=== PATIENT | male | born 1975 | race Caucasian/White ===

== ENCOUNTER → 2021-01-14 08:16 | Outpatient (BNVA) | payer OTHER, SELFPAY | PROVIDERS: PCP Internal Medicine; Visit Provider Urology | DX: N47.1 Phimosis (principal) | CPT/HCPCS: 99202 ==

== ENCOUNTER 2021-02-07 06:48 | Day surgery (SDC) | payer OTHER, SELFPAY ==
[2021-02-02 08:23] VITALS: BMI 43.4
[2021-02-07] VITALS (8 sets, daily range): BP systolic 106–169; BP diastolic 62–92; PULSE 63–81; RESP 16–18; TEMP 36.1–36.8; O2SAT 94–97
[2021-02-07 06:58] LABS: Glucose, Whole Blood 121 mg/dL (60-115)
[2021-02-07] MEDS: Lactated Ringers 1,000 ML 20 ML IVCONT (07:27)
--- NOTE | 2021-02-07 07:31 | MHC.SHP ---
Pre-Procedural Eval Section A The patient is an INPATIENT: No Changes since office visit: No Cold of Flu in the past 2 weeks, No New Medical Problems, No Changes in Medication and No Patient answered all questions The History & Physical has been completed within 30 days and I have reviewed it.: Yes Section B Chief Complaint: Phimosis Allergies: Allergies Allergy/AdvReac Type Severity Reaction Status Date / Time No Known Allergies Allergy Verified 01/14/21 08:32 Plan Diagnosis/Plan: Unchanged (circumcision with attachment) I have reviewed the history and physical and performed a pertinent physical examination on my patient. No changes have occurred unless specified.
--- NOTE | 2021-02-07 08:40 | HO.ANESPROP2 ---
[facility] Active Problems Active Problems: All Active Problems (Updated 02/02/21 @ 08:27 by Liana Alvarado) Phimosis (Acute) Past Medical History Medical History Arthritis Asthma Diabetes High blood pressure determined by examination Sleep apnea Surgical History Surgical History History of hernia repair Hx of appendectomy Social History Social History Are you a primary career development coordinator/teacher to a significant other at home: No Do you presently have visiting nurse or other home services: No Smoking Status: Never smoker Use of substances other than those prescribed or required for medical reasons: No Have you been hit, kicked, punched, or otherwise hurt by someone within the past year? If so, by whom?: No Advance Directives Information Provided: No Recently lost weight without trying: No Meds Allergies Allergy/AdvReac Type Severity Reaction Status Date / Time No Known Allergies Allergy Verified 01/14/21 08:32 Active Medications: Current Medications Generic Name Dose Route Start Last Admin Trade Name Freq PRN Reason Stop Dose Admin Lactated Ringer's 1,000 mls @ 20 mls/hr 02/07/21 07:30 02/07/21 07:27 Lr IVCONT 20 mls/hr .Q24H NATALIA Administration Home Medications Medication Instructions Recorded Confirmed Last Taken Type albuterol sulfate 90 mcg/actuation 2 puff PO Q6H PRN 01/14/21 02/02/21 Unknown History aerosol inhaler budesonide-formoterol HFA 160 2 puff INHALATION DAILY 01/14/21 02/02/21 02/07/21 History mcg-4.5 mcg/actuation aerosol inhaler lisinopril 10 mg tablet 10 mg PO DAILY 01/14/21 02/02/21 Unknown History metformin 500 mg tablet,extended 500 mg PO BEDTIME 01/14/21 02/02/21 Unknown History release 24 hr ibuprofen 400 mg PO Q6H PRN 02/02/21 02/02/21 02/01/21 History Exam Exam Date and Time: February 07, 2021 0840 Height,Weight and Vital Signs: Height 6 ft Weight 145.15 kg Last Vital Signs Temp 97 F 02/07/21 06:58 Pulse 70 02/07/21 06:58 Resp 18 02/07/21 06:58 BP 169/92 H 02/07/21 06:58 Pulse Ox 95 02/07/21 06:58 Pertinent Lab Results Pertinent Lab Results: Laboratory Tests 02/07/21 06:55 POC Glucose 121 H Airway Mallampati Class: I TM Dist: >3cm Neck ROM: Full Assessment and Plan Assessment Anesthesia Assessment: Anesthesia Plan Discussed Final Anesthetic Review NPO: Yes ASA Class: III Final Preanesthetic Review: No Changes in Pt Med Stat, Meds/Allgs Chart Reviewed, Consent Obtained/Reviewed and Anes Risks/Benef Reviewed Patient Risk: Intermediate Procedure Risk: Low Assessment/Block/Sedation in SS: Assess/Block/Sedation-SS Anesthetic Plan Anesthetic Plan: GA Disposition: Standard PACU
--- NOTE | 2021-02-07 10:25 | P.OP_ITS ---
Operative Note Operative Note Date of Service: 02/07/21 Narrative: PreOperative Diagnosis: Balanitis and phimosis in obese male Post Operative Diagnosis: Balanitis and phimosis in morbidly obese male Procedure: Circumcision with penile plasty Surgeon: Dr Flex Huerta Anesthesia: General Indications for procedure: Recurring balanitis in inability to withdrawal foreskin of penile glans. Risks and benefits including bleeding, scarring, need for revision surgery been discussed. Due to body habitus has had in penis so will perform penile plasty at time of circumcision Procedure: After informed consent was verified the patient was brought to the operating room and placed in a supine position. Anesthesia was administered per protocol. The patient was prepped and draped sterile fashion. Safety pause time-out was performed. Antibiotics have been given. The penis was examined and proximal incision marked that lay just proximal to the resting position of the penile sulcus. This was followed around the circumference of the penis. A penile ring block was performed using 1% lidocaine with no epinephrine. Approximately 8 cc. The foreskin was difficult withdrawal. Three separate incisions were required 1 at the 12:00 o'clock, 03:00 o'clock and 09:00 o'clock positions in order to fully retract the foreskin and clean with Betadine. The proximal incision was developed with sharp blade running circumferentially around the penis. The skin was to give a 1 cm separation between the foreskin in the remaining penile shaft skin. The foreskin was withdrawn and the penile glans exposed. A a distal incision was made approximately 5 mm proximal to the penile sulcus. At the area of the frenulum care was taken to empty the penile frenulum intact. Using clamps the dorsal skin was elevated. Using Metzenbaum scissors the avascular plane was entered and proximal and distal incision were joined. The bridging skin was elevated and clamped. It was then divided using Bovie. The sleeve of tissue was then removed circumferentially around the penis using cautery in order to minimize bleeding. The avascular plane underlying Evans's fascia and below the dartos fascia was developed in the dorsal position down along the shaft of the penis. This created space is that would allow the penile plasty sutures to be applied. A Z- plasty small incision approximately 1/2 inches was made at the penoscrotal junction to allow mobilization if necessary. Using 3-0 Vicryl sutures these were placed into the corporal bodies to take fascia and then through the dartos layer of the skin and the perceived junction between the base of the penis and. Pubic space. These were placed at 02:00 o'clock and 10:00 o'clock positions. They allowed the skin to be brought down more onto the proximal portion of the penile shaft. After these had been tied down we redirected cells to reapproximation of the skin. The shaft was then examined in any bleeding areas were controlled. More local anesthetic was injected into the plane beneath avascular plane to help with postprocedure pain management. The skin edges after they were appropriately examined low reapposed. A 3-0 chromic suture was placed at 12:00 o'clock and 06:00 o'clock positions. Interrupted 3-0 was then placed the 09:00 o'clock and 3 o'clock position. Each quadrant was then filled with 3 sutures using 4-0 chromic. Small free Incision was closed with 4-0 chromic sutures. The Z-plasty on the scrotum was closed using interrupted 4-0 chromic sutures as well. At the completion of the procedure there was adequate hemostasis. The incision was washed and dried. Antibiotic cream was applied to the incision. A Clifton wrap was applied followed by a Coban dressing. Xeroform gauze had been used to cover antibiotic ointment. He tolerated the procedure well and was extubated in the room and transferred in stable condition to the recovery area. Pathology: Foreskin Drains: none
--- NOTE | 2021-02-07 11:50 | PM.OP ---
Brief Operative Note Date of Service: 02/07/21 Pre-op diagnosis: Phimosis, hidden penis Post-op diagnosis: same Procedure: Circumcision with penile plasty Surgeon: Flex Huerta MD Anesthesia: GLMA Estimated blood loss (mL): 0 Pathology: other Condition: stable Disposition: same day
== END 2021-02-07 12:14 ==
LOC: HO.SSS 06:48
PROVIDERS: PCP Internal Medicine; Visit Provider Urology
PROC: (CPT 54161; principal; 2021-02-07 08:30)
DX: N47.1 Phimosis (principal); N48.1 Balanitis; N48.83 Acquired buried penis; E66.01 Morbid (severe) obesity due to excess calories; J45.909 Unspecified asthma, uncomplicated; I10 Essential (primary) hypertension; G47.33 Obstructive sleep apnea (adult) (pediatric); E11.9 Type 2 diabetes mellitus without complications; Z79.84 Long term (current) use of oral hypoglycemic drugs; Z79.899 Other long term (current) drug therapy; Z79.1 Long term (current) use of non-steroidal anti-inflammatories (NSAID); Z79.51 Long term (current) use of inhaled steroids
CPT/HCPCS: 54161; 54300; 82947; 88304; J0690; J1100; J2250; J2405; J3010

== ENCOUNTER → 2021-02-16 14:28 | Outpatient (BNVA) | payer OTHER, SELFPAY | PROVIDERS: PCP Internal Medicine; Visit Provider Urology | DX: Z13.89 Encounter for screening for other disorder (principal) | CPT/HCPCS: 99212 ==

== ENCOUNTER → 2021-02-22 08:56 | Outpatient (BNVA) | payer OTHER, SELFPAY | PROVIDERS: PCP Internal Medicine; Visit Provider Urology | DX: N47.1 Phimosis (principal) | CPT/HCPCS: 99212 ==

== ENCOUNTER → 2021-06-03 08:31 | Outpatient (BNVA) | payer OTHER, SELFPAY | PROVIDERS: PCP Internal Medicine; Visit Provider Urology | DX: N47.1 Phimosis (principal) | CPT/HCPCS: 99212 ==

== ENCOUNTER 2022-07-25 12:37 | Outpatient (RCR) | payer OTHER, SELFPAY | END 2022-07-28 14:24 | disposition home or self-care (01) | LOC: HO.WCC 12:37 | PROVIDERS: Visit Provider Physician Assistant | DX: L08.9 Local infection of the skin and subcutaneous tissue, unspecified (principal); R73.03 Prediabetes; I10 Essential (primary) hypertension; I73.9 Peripheral vascular disease, unspecified; I87.2 Venous insufficiency (chronic) (peripheral); F10.90 Alcohol use, unspecified, uncomplicated | CPT/HCPCS: 99213 ==

== ENCOUNTER 2024-09-16 10:57 | Outpatient (AMB) | payer OTHER, SELFPAY ==
--- NOTE | 2024-09-16 11:06 | MHC.OFFVIS ---
Vital Signs 09/16/24 11:18 Height 6 ft Weight 303 lb 12.752 oz BMI 41.2 BP 130/74 Blood Pressure Location Lt brachial Position Sitting Respiration 18 Pulse 57 Pulse Source Pulse Oximeter Pulse Oximetry (%) 97 Oxygen Delivery Method Room Air Intake Visit Reasons: +СВЕТЛАНА/cm Intake Note: Patient presents for +СВЕТЛАНА. I feel pain on both my shoulders, right hand and both knees. I been feeling pain for 6 years. I take Ibuprofen and it works up to 10 hours. Allergies metformin Adverse Reaction (Mild, Verified 09/16/24 11:12) Diarrhea Medication List - Last Reconciled 09/16/24 by Smiley Rose MD albuterol sulfate 90 mcg/actuation 2 puffs PO Q6H PRN amlodipine-benazepril 5-10 mg 1 cap PO DAILY budesonide-formoterol 80-4.5 mcg/actuation (Symbicort) 1 inh inhalation BID ibuprofen 400 mg PO Q6H PRN HPI Comments Details: This is a 49-year-old male who presents for evaluation of a positive СВЕТЛАНА in the context of multiple joint pain. States that he has pain in both shoulders, particularly the left shoulder. He states that his left shoulder came out of its socket and went back in during a boxing match when he was 16. Then he has been having shoulder problems. He never got checked out. He gets bilateral knee pain with certain positions such as leaning, squatting going up and down the stairs. He also gets pain in the hands, usually with activity. 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 He denies any significant joint swelling. Denies any unintentional weight loss or fevers. Denies any skin rashes. Denies any history of DVT/PE. He is unaware of any family history of an autoimmune rheumatic disease. [facility] Medical History Arthritis Sleep apnea Asthma Diabetes High blood pressure determined by examination Surgical History Hx of appendectomy History of hernia repair Family History Mother Cancer Hypertension Father Tendonitis Cancer Fibromyalgia Diabetes Social History Household Members: Family Housing: House Are you a primary career guidance counselor to a significant other at home: No Do you presently have visiting nurse or other home services: No Alcohol intake: current Alcohol intake frequency: holidays/special occasions only Comment: OCC Patient Tobacco Use Status: Never used Tobacco Current occupational status: employed 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 Review of Systems Const Denies fever(s) and Denies weight loss Musc Reports arthralgias, Denies joint swelling and Reports stiffness Skin/Breast Denies rash Physical Exam Vital Signs: Last Vital Signs Pulse 57 09/16/24 11:18 Resp 18 09/16/24 11:18 BP 130/74 09/16/24 11:18 Pulse Ox 97 09/16/24 11:18 Oxygen Delivery Method Room Air 09/16/24 11:18 BMI result Body Mass Index 41.2 Const General: cooperative, healthy appearing and comfortable Nutritional Appearance: obese morbidly obese Orientation/consciousness: patient oriented x3 Limitations: no limitations HEENT Head: Yes normocephalic and Yes atraumatic Mouth: moist mucous membranes Resp Effort & Inspection: normal respiratory effort and able to speak in complete sentences Skin General skin exam: no rashes or lesions noted Neuro General: patient oriented x3 Extrem Other: No active synovitis Left shoulder crepitus Normal range of motion of both shoulders with negative rotator cuff provocative maneuvers and speed's test Nailfold capillaroscopy Bilateral knee crepitus Results Reviewed Results Reviewed: Labs 2023 СВЕТЛАНА 1-160 nucleolar ESR and CRP normal RF/DNA/Cherry/SUPERVISOR DISPLAY FABRICATION/chromatin/SSA/SSB/SCL 70/Agnieszka 1/centromere/ribosome P all negative CBC unremarkable CMP unremarkable TSH 1.45 Assessment & Plan Assessment & Plan (1) СВЕТЛАНА positive: Code(s): R76.8 - Other specified abnormal immunological findings in serum Category: Medical Plan: This is a 49-year-old male presents for evaluation of a positive СВЕТЛАНА in the setting of polyarthralgias. On exam I do not see any evidence of an underlying autoimmune rheumatic disease. Sub serologies and inflammatory markers were normal. Picture rather consistent with degenerative arthritis and some tendonitis. Discussed with patient that about 20% of the population can have a positive СВЕТЛАНА with no underlying autoimmune rheumatic disease. Discussed treatment of generalized osteoarthritis, can use Tylenol, Voltaren gel. Can use NSAIDs sparingly. Consider PT for the left shoulder. If no improvement, consider evaluation by her orthopedist given history of injury years ago. Follow-up as needed Plan I spent 30 minutes reviewing patient's chart, evaluating patient, counseling patient and documenting in the chart Coding Level of Care Code New Pt Level 3 (19253) Diagnoses СВЕТЛАНА positive R76.8
[2024-09-16 11:18] VITALS: BP 130/74; PULSE 57; RESP 18; O2SAT 97; BMI 41.2
== END 2024-09-16 13:17 | disposition home or self-care (01) ==
PROVIDERS: PCP Internal Medicine; Visit Provider Student in an Organized Health Care Education/Training Program
DX: R76.8 Other specified abnormal immunological findings in serum (principal)
CPT/HCPCS: 99203

== ENCOUNTER → 2024-09-16 10:57 | Outpatient (BNVA) | payer OTHER, SELFPAY | PROVIDERS: PCP Internal Medicine; Visit Provider Student in an Organized Health Care Education/Training Program | DX: R76.8 Other specified abnormal immunological findings in serum (principal) | CPT/HCPCS: 99202 ==